=== PATIENT | female | born 1960 | race Caucasian/White ===

== ENCOUNTER 2024-02-10 06:29 | Day surgery (SDC) | payer MEDICARE, SELFPAY ==
[2024-02-10 09:05] VITALS: BP 144/72
[2024-02-10 12:15] VITALS: BMI 30.6
[2024-02-10 12:20] VITALS: BP 142/80
[2024-02-10 12:30] VITALS: BMI 30.6
[2024-02-10] MEDS: Pyridium 200 MG PO (12:40)
[2024-02-10] MEDS: NORMOSOL-R 1000 IV (12:42)
[2024-02-10 18:20] VITALS: BP 142/80
[2024-02-10 18:22] VITALS: BP 131/65
[2024-02-10 19:25] VITALS: BP 142/85
[2024-02-10 19:50] VITALS: BP 144/85
== END 2024-02-10 19:50 | disposition home or self-care (01) ==
LOC: SDS 06:29
PROVIDERS: ATTENDING PHYSICIAN Obstetrics & Gynecology
DX: N81.6 Rectocele (principal)
CPT/HCPCS: 57250; 93005